=== PATIENT | male | born 1940 | race Caucasian/White ===

== ENCOUNTER → 2019-08-14 08:31 | Outpatient (CLI) | payer MEDICARE, OTHER, SELFPAY ==
--- NOTE | 2019-08-14 08:39 | NM_ITS ---
CLINICAL: 79-year-old male with history of low back discomfort. WHOLE BODY 99m Tc MDP RADIONUCLIDE BONE SCINTIGRAPHY COMPARISON: None available FINDINGS: Following the intravenous administration of approximately 25.0 mCi of 99m Tc MDP, whole body bone images reveal: 1. Increased radiopharmaceutical concentration is identified in the mid cervical spine posteriorly on the right, first thoracic vertebra posteriorly on the left, the fifth, sixth-eighth thoracic vertebra posteriorly on the right, third-fifth lumbar vertebra, bilateral hips, shoulders bilaterally to include the acromioclavicular, sternoclavicular and glenohumeral compartments, both knees, medial compartment of the left ankle, right-left wrists. 2. The remaining skeletal structures are scintigraphically unremarkable with normal-appearing renal images and urinary bladder activity identified. There is calcification of the bilateral costochondral junction-costosternal junction. Facilitate uptake is noted at the level of the sternomanubrial synchondrosis. Increased uptake is defined in the right mandible and left maxilla most consistent with periodontal disease and/or periostitis. NM/Bone Scan Whole Body IMPRESSION: 1. The increase in radiopharmaceutical concentration identified in the cervical, thoracic and lumbar spine, both hips, right-left shoulders, bilateral knees, left ankle, right and left wrists. 2. No other definitive scintigraphic abnormalities are visualized. There is no definitive typical scintigraphic evidence of trauma-fracture on the current examination. Electronically Signed: Marquise Phillips DO at 23:47 EST Tel , Service support ,
== END ==
PROVIDERS: Family Provider Family Medicine; PCP Family Medicine; Referring Provider Nurse Practitioner; Visit Provider Nurse Practitioner
DX: D18.09 Hemangioma of other sites (principal)
CPT/HCPCS: 78306

== ENCOUNTER 2019-12-13 13:08 | Emergency (ER) | payer MEDICARE, OTHER, SELFPAY ==
[2019-12-13 13:08] VITALS: BP 132/69; PULSE 60; RESP 16; TEMP 36.9; O2SAT 98; BMI 29.0
--- NOTE | 2019-12-13 14:06 | CT_ITS ---
STUDY: CT BRAIN WITHOUT CONTRAST REASON FOR EXAM: Male, 79 years old. STROKE, PT REPORTS NUMBNESS LT LEG THAT IS GETTING WORSE AND SPREADING TO HIS LT ARM. ALSO REPORTS SOB THAT IS KEEPING HIM FROM SLEEPING THE PAST COUPLE OF NIGHTS. RADIATION DOSAGE (If Supplied By Facility): CTDIvol = ( 44.99 ) mGy, DLP = ( 779.24 ) mGycm TECHNIQUE: Transaxial CT imaging of the brain was performed without administration of intravenous contrast material. Individualized dose optimization techniques were used for this CT. COMPARISON: January 02, 2016 CT scan head FINDINGS: Normal soft tissue structures. Normal calvarium. There is mild cerebral atrophy with widening of the extra-axial spaces and ventricular dilatation. There are areas of decreased attenuation within the white matter tracts of the supratentorial brain, consistent with microvascular disease changes. Normal basal ganglia and thalami. Normal brainstem. There is mild cerebellar atrophy. There is no intracranial hemorrhage. There are no findings of an acute ischemic infarction. Normal visualized paranasal sinuses. CT/Brain/Head without Contrast IMPRESSION: Atrophy. No evidence of acute hemorrhage infarct or edema. Electronically Signed: Melinda Araya MD at 14:55 EDT Tel , Service support ,
--- NOTE | 2019-12-13 14:06 | RAD_ITS ---
STUDY: X-RAY CHEST REASON FOR EXAM: Male, 79 years old. SOB TECHNIQUE: Single AP portable view of the chest. COMPARISON: January 02, 2016 chest x-ray FINDINGS: The lungs are clear and expanded. There is no demonstrated pleural abnormality. Normal size heart. Normal mediastinum and juan pablo. Normal visualized pulmonary arteries. Normal visualized aortic arch and descending thoracic aorta. There are diffuse degenerative changes of the visualized thoracic spine. Normal visualized ribs, clavicles, and shoulders. There is no demonstrated abnormality of the visualized soft tissue structures of the upper abdomen. RAD/Chest 1 View IMPRESSION: Stable chest no visualized acute focal infiltrate. Electronically Signed: Melinda Araya MD at 15:22 EDT Tel , Service support ,
--- NOTE | 2019-12-13 14:06 | EKG12_ITS ---
Test Reason : NEURO Blood Pressure : / mmHG Vent. Rate : 056 BPM Atrial Rate : 357 BPM P-R Int : 000 ms QRS Dur : 096 ms QT Int : 448 ms P-R-T Axes : 000 -36 006 degrees QTc Int : 432 ms Sinus bradycardia Left axis deviation Minimal voltage criteria for LVH, may be normal variant Abnormal ECG Confirmed by RONAL LOVE, CIERRA ([id number]), editor managing director KEYSHA GOODWIN ([id number] on 12/16/2019 1:54:52 PM Referred By: KIMBERLY Confirmed By:CIERRA VILLEDA MD
[2019-12-13 14:21] LABS: Bedside Glucose 98 mg/dL (70-110)
[2019-12-13 14:25] LABS: Absolute Neutrophil Count 4.7 X10^3/uL (2.0-7.7); Basophil# 0.07 X10^3/uL; Basophil% 0.9 % (0-1); Eosinophil# 0.16 X10^3/uL; Eosinophils% 2.2 % (0-5); Hematocrit 38.4 % (40-54); Hemoglobin 13.3 g/dL (13.0-16.5); Lymphocyte % 20.2 % (19-41); Mean Corp Hgb Conc 34.6 g/dL (32-36); Mean Corpuscular Hgb 31.6 pg (27.0-32.0); Mean Corpuscular Volume 91.2 fL (80-94); Mean Platelet Vol. 9.7 fl (6.2-12.0); Monocyte# 0.87 X10^3/uL; Monocyte% 11.7 % (0-10); NRBC Flagged by Analyzer 0 % (0-5); Neutrophil # 4.73 X10^3/uL (2.7-7.7); Neutrophil % 63.8 % (47-70); Platelet Count 212 K/mm3 (150-450); RBC Distribution Width CV 12.5 % (11.6-14.6); RBC Distribution Width SD 41.4 fl (35.1-43.9); Red Blood Count 4.21 M/mm3 (4.6-6.2); White Blood Count 7.4 K/mm3 (4.4-11.0)
[2019-12-13 14:27] VITALS: BP 153/86; PULSE 71; RESP 22; O2SAT 97
[2019-12-13 14:32] LABS: International Normalized Ratio 1.1; Prothrombin Time (Protime)PT. 13.7 SECONDS (11.7-14.9)
[2019-12-13 14:34] LABS: Partial Thromboplast Time 32.2 Seconds (24.1-36.2)
[2019-12-13 14:36] LABS: Anion Gap 6 (5-15); BUN 18 mg/dL (7-18); BUN/Creat Ratio 18.3 RATIO (10-20); Calcium,Total 8.6 mg/dL (8.5-10.1); Chloride 106 mmol/L (98-107); Creatinine, Serum 0.98 mg/dL (0.70-1.30); EST Glomerular Filtration Rate 78 mL/min (>60); Est Glom Filt Rate - Afr Amer 94 mL/min (>60); Estimated Creatinine Clearance 64.14 ml/min; Glucose 109 mg/dL (74-106); Sodium Level 138 mmol/L (136-145)
[2019-12-13 14:50] LABS: BNP,B-Type NATRIURETIC PEPTIDE 150.2 pg/mL (0-100)
--- NOTE | 2019-12-13 15:12 | ED.RN ---
called about xray results. ruben will be checking on it
[2019-12-13 15:28] VITALS: BP 176/85; PULSE 57; RESP 20; O2SAT 97
--- NOTE | 2019-12-13 16:22 | ED.DCSUM_ITS ---
- ER Visit Summary Date of Service: 12/13/19 Chief Complaint: Left calf numbness and left arm numbness History of Present Illness: The patient is a [address] Payne, Dr. Cortes, and Dr. Steel (process expert). He reports he is had numbness to the medial side of his left calf for approximately 1 month. States that over the past 2 days it has moved down into his left foot and up toward his knee. Is also moved over to his right foot. He reports that his over the past 2 days that his left arm does not feel right. He denies any weakness. He denies any other neurologic symptoms. No headache, vertigo, problems with his balance, or change in his vision. Patient reports that 2 nights ago he woke from sleep at 330 and was short of breath. States that since that time he has a difficult time sleeping. He reports that when he lays down that he is fine if he breathes through his mouth, but he cannot breathe through his nose. However he denies any nasal congestion. He denies any chest pain. He denies any shortness of breath with exertion. Physical Examination: Vitals: Stable. Afebrile. General: Well-nourished and well-developed. Head: Normocephalic atraumatic. Neck: Supple, no lymphadenopathy. No JVD. Nontender. Cardiovascular: Regular rate and rhythm. No murmurs. Respiratory: No respiratory distress. Clear to auscultation bilaterally. Abdominal: Soft, nontender, nondistended, normal bowel sounds. No guarding, rebound, or peritoneal signs. Back: Nontender. Extremities: Nontender, no edema. 2+ dorsalis pedis pulses bilaterally. He has no tenderness to palpation over his calf. There is no erythema or warmth to suggest infection. Skin: Normal color, no rash. Neurologic: Alert and oriented ?3. Cranial nerves II through XII are intact. Normal strength and sensation. His NIH scale is 0. Psych: Normal affect. Test Results: EKG is sinus bradycardia at 56. There is no old EKG for comparison. Troponin is negative. BNP is 150.2. Coags are normal. Chem-7 shows a chloride of 109. CBC shows a hematocrit of 38.4 and monocytes of 11.7. Clinical Impression(s) from Imaging Studies Brain CT 12/13/19 14:06 IMPRESSION: Atrophy. No evidence of acute hemorrhage infarct or edema. Electronically Signed: Melinda Araya MD at 14:55 EDT Tel , Service support , Chest X-Ray 12/13/19 14:06 IMPRESSION: Stable chest no visualized acute focal infiltrate. Electronically Signed: Melinda Araya MD at 15:22 EDT Tel , Service support , Emergency Department Course and Treatment: Patient's NIH scale is 0. Obviously is not a TPA candidate due to the timeframe of 2 days and the NIH scale of 0. He has only complaint of paresthesias and these are not even present on exam. I discussed the patient this time I do not have an explanation for his paresthesias or his shortness of breath. He does not want to be admitted to the hospital. He is concerned about the possibility of coronavirus. Treatment Plan: At this time I do think the patient is reasonable candidate for further outpatient evaluation. He will be discharged instructions to follow-up with his process expert as soon as possible, his neurologist as soon as possible, and his primary care physician 1 to 2 days for another exam. Return to the emergency department for any worsening symptoms. Disposition: To home in improved and stable condition. Impression: 1. Left leg paresthesias. 2. Dyspnea, uncertain cause. This note was generated with [employer] dictation software. It may contain incorrect words, spelling, and punctuation that were not noted in review of the chart prior to signing ED Disposition - Plan for ED Patient: Disposition: Home or Assisted Living Instructions: ED Dyspnea, ED Paraesthesias Referrals: Rick Cortes MD [STAFF PHYSICIAN] - As soon as possible Erika Payne MD [Primary Care Provider] - 2 Days Additional Instructions: Follow up with your Elevator Conductor as soon as possible.
[2019-12-13 16:37] VITALS: BP 172/95; PULSE 62; RESP 16; O2SAT 97
== END 2019-12-13 16:38 | disposition home or self-care (01) ==
LOC: ED 13:54
PROVIDERS: Emergency Provider Emergency Medicine; PCP Family Medicine
DX: R20.2 Paresthesia of skin (principal); R06.00 Dyspnea, unspecified; R06.02 Shortness of breath; I25.10 Atherosclerotic heart disease of native coronary artery without angina pectoris; G20 Parkinson's disease; E78.00 Pure hypercholesterolemia, unspecified; Z79.899 Other long term (current) drug therapy; Z79.82 Long term (current) use of aspirin
CPT/HCPCS: 70450; 71045; 80048; 82962; 83880; 84484; 85025; 85610; 85730; 93005; 99284; A4216